=== PATIENT | male | born 1965 ===

== ENCOUNTER 2017-12-08 18:50 | Emergency (ER) | payer OTHER ==
[~2017-12-08] VITALS: Ht 180.3 cm; Wt 79.4 kg
[2017-12-08] MEDS ORDERED: SYNTHROID75 MCG (19:25)
[2017-12-08] MEDS ORDERED: DESCOVY 200-251 EACH (19:26)
[2017-12-08] MEDS ORDERED: [UNRECOGNIZED DRUG - OTHER] (19:27)
[2017-12-08] MEDS ORDERED: [UNRECOGNIZED DRUG - OTHER] (19:27)
[2017-12-08] MEDS ORDERED: LEVAQUIN750 MG PO (21:01)
== END 2017-12-08 21:23 | disposition home or self-care (01) ==
LOC: ER 18:50 → EDSEX 18:55 → ER 21:23
DX: S00.8 Superficial injury of other parts of head (principal); L08.9 Local infection of the skin and subcutaneous tissue, unspecified; W54.0XXS Bitten by dog, sequela

== ENCOUNTER → 2021-08-27 | Outpatient (CLI) | payer OTHER ==
[~2021-08-27] MED LIST: DESCOVY 200-251 EACH; LEVAQUIN750 MG PO; SYNTHROID75 MCG; [UNRECOGNIZED DRUG - OTHER]; [UNRECOGNIZED DRUG - OTHER]
== END | disposition home or self-care (01) ==
LOC: SONOGRAMA 13:52
DX: E03.9 Hypothyroidism, unspecified (principal); E04.1 Nontoxic single thyroid nodule

== ENCOUNTER 2024-03-25 07:49 | Outpatient (CLI) | payer OTHER | END 2024-03-25 07:59 | disposition home or self-care (01) | LOC: TOM 07:49 | PROVIDERS: ATTEND Internal Medicine Pulmonary Disease | DX: R91.1 Solitary pulmonary nodule (principal) ==

== ENCOUNTER 2024-08-18 09:41 | Outpatient (CLI) | payer OTHER | END 2024-08-18 09:44 | disposition home or self-care (01) | LOC: SONOGRAMA 09:41 | DX: E04.2 Nontoxic multinodular goiter (principal) ==